=== PATIENT | male | born 1955 | race Caucasian/White ===

== ENCOUNTER 2021-11-29 19:39 | Emergency (ER) | payer MEDICARE ==
[~2021-11-29] VITALS: Ht 175.3 cm; Wt 87.7 kg
[2021-11-29] MEDS ORDERED: normal saline 1000ml 1,000 ML IV ONE ×3 (20:25→23:10)
[2021-11-29 20:29] LABS: BASOPHILS % (AUTO) 0.3 % (0-1); EOSINOPHILS # (AUTO) 0.2 X10'3 (0-0.9); EOSINOPHILS % (AUTO) 1.7 % (0-6); HEMATOCRIT 40.1 % (42.0-52.0); HEMOGLOBIN 13.6 g/dl (14.0-17.9); LYMPHOCYTES % (AUTO) 42.4 % (21-51); MEAN CORPUSCULAR HEMOGLOBIN 29.7 PG (27.0-31.0); MEAN CORPUSCULAR VOLUME 87.4 FL (78-98); MEAN PLATELET VOLUME 8.4 FL (7.4-10.4); MONOCYTES # (AUTO) 0.6 X10'3 (0-0.9); MONOCYTES % (AUTO) 6.5 % (2-12); NEUTROPHILS # (AUTO) 4.7 X10'3 (1.8-7.7); NEUTROPHILS % (AUTO) 49.1 % (42-75); PLATELET COUNT 252 X10'3 (140-440); RED BLOOD COUNT 4.59 X10'6 (4.70-6.10); RED CELL DISTRIBUTION WIDTH 14.1 % (11.5-14.5); WHITE BLOOD COUNT 9.5 X10'3 (4.5-11.0)
[2021-11-29] MEDS ORDERED: tranexamic acid 100mg/ml inj. IV ONE (20:40)
[2021-11-29] MEDS ORDERED: ondansetron/PF 4mg/2ml inj IV ONE (20:40)
[2021-11-29 20:42] LABS: APTT 24 SECONDS (22-32)
[2021-11-29 20:44] LABS: ALANINE AMINOTRANSFERASE 37 U/L (12-78); ALBUMIN/GLOBULIN RATIO 1.2 (1.1-1.5); ALKALINE PHOSPHATASE 86 IU/L (46-116); ANION GAP 10 (8-16); ASPARTATE AMINO TRANSFERASE 21 U/L (10-37); BILIRUBIN,TOTAL 0.4 MG/DL (0.1-1.0); BLOOD UREA NITROGEN 33 MG/DL (7-18); BUN/CREATININE RATIO 25.2 (5.4-32.0); CALCIUM 8.8 MG/DL (8.5-10.1); CHLORIDE 108 MMOL/L (99-107); CREATININE 1.31 MG/DL (0.60-1.10); GLUCOSE 203 MG/DL (70-104); POTASSIUM 3.7 MMOL/L (3.5-5.1); SODIUM 142 MMOL/L (135-145); TOTAL CARBON DIOXIDE 24.1 MMOL/L (24-32); TOTAL PROTEIN 7.4 G/DL (6.4-8.2); eGFR 55 ML/MIN
[2021-11-29] MEDS ORDERED: tranexamic acid inj. 1,000 MG in 0.7% saline 100 ML PMX IV ONE (20:49)
--- NOTE | 2021-11-29 21:56 | NUR ---
Notified doctor of patient's BP dropping to 66/43 with a pulse of 53. Dr. Hidalgo gave order for a second bolus of fluid.
[2021-11-29 23:05] VITALS: BP 116/67
== END 2021-11-29 23:29 | disposition home or self-care (01) ==
LOC: ER 19:40
DX: R04.0 Epistaxis (principal); R42 Dizziness and giddiness; R11.0 Nausea
CPT/HCPCS: 36415; 80053; 82948; 85025; 85610; 85730; 86885; 86900; 86901; 93005; 96365; 96375; 99284; J2405; J3490; J7030

== ENCOUNTER 2023-04-16 16:04 | Emergency (ER) | payer MEDICARE ==
[~2023-04-16] VITALS: Ht 175.3 cm; Wt 84.6 kg
[2023-04-16] MEDS ORDERED: oxymetazoline 15 ML nasal spray NS ONE (16:55)
[2023-04-16] MEDS ORDERED: bacitracin 15gm ointment TP ONE (16:55)
--- NOTE | 2023-04-16 18:26 | NUR ---
Patient with episode of diaphoresis, dizziness. Patient states that he is "seeing white". ED AVERY Diez and shira nurse notified. IV initiated. Accucheck 141.
[2023-04-16] MEDS ORDERED: normal saline 1000ml 1,000 ML IV STA (18:40)
--- NOTE | 2023-04-16 18:50 | NUR ---
Patient provided with apple juice, he states that he is feeling a little bit better. IV fluids running. Blood pressure improved to 91/53
--- NOTE | 2023-04-16 19:32 | NUR ---
Pt tolerating PO. He states that he is feeling much better. Denies any change of vision, dizziness. Skin is pink warm and dry. IV fluids completed.
[2023-04-16 19:50] VITALS: BP 112/60; PULSE 78; RESP 16; O2SAT 96
== END 2023-04-16 19:43 | disposition home or self-care (01) ==
LOC: ER 16:05
DX: R04.0 Epistaxis (principal); R55 Syncope and collapse
CPT/HCPCS: 30901; 82948; 96360; 99285; J7030; A6449